=== PATIENT | male | born 2000 | race Caucasian/White ===

== ENCOUNTER 2025-02-17 11:43 | Outpatient (REF) | payer MEDICAID, OTHER, SELFPAY ==
[2025-02-17 13:30] LABS: Estimated Average Glucose 103 mg/dL; Hemoglobin A1C 133.9376 umol/L; Hemoglobin A1c % 5.2 % (<6.0); Total Hemoglobin (HGBA1C) 4030.6055 umol/L
[2025-02-17 13:37] LABS: Hemoglobin 15.3 g/dl (14.0-18.0); Mean Corpuscular HGB Conc 33.3 g/dl (31.0-36.0); Mean Corpuscular Hemoglobin 30.5 pg (27.0-33.0); Mean Corpuscular Volume 91.6 fL (80.0-98.0); Mean Platelet Volume 11.1 fL (9.4-12.4); Platelet Count 308 X10*3/uL (160-400); Red Blood Count 5.02 X10*6/uL (4.60-5.80); Red Cell Distribution Width 12.5 % (11.0-16.0); White Blood Count 8.5 X10*3/uL (4.8-10.8)
[2025-02-17 13:38] LABS: Alanine Aminotransferase 21 U/L (0-40); Albumin Level 4.2 g/dL (3.5-5.0); Anion Gap 11 (12-20); Aspartate Amino Transferase 33 U/L (5-37); Bilirubin Direct 0.3 mg/dL (0.0-0.5); Bilirubin Total 0.9 mg/dL (0.0-1.0); Blood Urea Nitrogen 19 mg/dL (9-16); Carbon Dioxide 26 mmol/L (22-29); Chloride 106 mmol/L (96-108); Cholesterol 154 mg/dL (<200); Estimated Glomerular Filt Rate > 60; Glucose Random 87 mg/dL (60-115); HDL Cholesterol 46 mg/dL (>40); LDL Cholesterol Calculated 95 mg/dL (<100); Sodium 139 mmol/L (135-145); Total Protein 7.5 g/dL (6.5-8.0); Triglycerides 67 mg/dL (<150)
[2025-02-17 14:06] LABS: Free T4 (Free Thyroxine) 1.07 ng/dL (0.71-1.85); Thyroid Stimulating Hormone 2.39 uIU/mL (0.32-4.0); Vitamin D 25-OH Total 58.1 ng/mL (>30)
[2025-02-17 14:09] LABS: Alkaline Phosphatase 96 U/L (39-117)
--- OUTSIDE RECORDS SUMMARY | 2025-02-17 14:38 | XMS_ITS | Clinical Summary ---
Author Organization [employer] Address [address] [place] [address] Care Team Providers Care Funds Transfer Clerk Name Role Phone Unavailable Primary Care Provider Unavailabl e Allergies No known active allergies Medications omeprazole OTC (PriLOSEC OTC) 20 MG EC tablet Take 1 tablet (20 mg) by mouth before breakfast. Do not crush, chew, or split. 30 tablet 3 5 02/18/20 26 Active aspirin-acetamin ophen-caffeine (Excedrin Migraine) 250-250-65 MG tablet Take 1 tablet by mouth every 6 (six) hours if needed for headaches for up to 10 days. 30 tablet 5 02/28/20 25 Active traMADol (Ultram) 50 MG tabletIndication s:Acute intractable headache, unspecified headache type Take 1 tablet (50 mg) by mouth every 6 (six) hours if needed for severe pain for up to 1 day. 4 tablet 5 02/19/20 25 Active Encounters Date Type Department Care Team Description 02/17/2025 11:00 AM EDT Office Visit [facility] [address] [id number] Acute intractable headache, unspecified headache type (Primary Dx); Epigastric discomfort 02/17/2025 Travel from Last 3 Months Social History Tobacco Use Types Packs/Day Years Used Date Smoking Tobacco: Never Assessed Sex and Gender Information Value Date Recorded Sex Assigned at Male 01/14/2024 11:35 AM EDT Legal Sex Male 2:20 PM EDT Gender Identity Male 01/14/2024 11:35 AM EDT Sexual Orientation Straight 02/17/2025 10 :49 AM EDT Last Filed Vital Signs Vital Sign Reading Time Taken Comments Blood Pressure 137/76 02/17/2025 11:02 AM EDT Pulse 62 02/17/2025 11:02 AM EDT Temperature 36.6 ??C (97.8 ??F) 02/17/2025 1 1:02 AM EDT Respiratory Rate 18 02/17/2025 11:0 2 AM EDT Oxygen Saturation 98% 02/17/2025 11: 02 AM EDT Inhaled Oxygen Concentration - - Weight 75.7 kg (166 lb 12.8 oz) 025 11:02 AM EDT Height - - Body Mass Index - - Plan of Treatment Health Maintenance Due Date Last Done Comments Depression Screening 2000 HIV Screening 2000 SDOH Screening 2000 Alcohol/Substance Use Screening 2012 Tobacco Screening 2012 Family Planning (PISQ) 2015 HPV Vaccines (1 - Male 3-dos e series) 2015 Hepatitis C Screening 2018 DTaP/Tdap/Td Vaccines (1 - Tdap) 2019 Hepatitis B Vaccines (1 of 3 - 19+ 3-dose series) 2019 COVID-19 Vaccine (1 - 2023-2 5 season) 2024 Influenza Vaccine (#1) 2024 Zoster Vaccines (1 of 2) 2050 RSV Patients and Pa tients Aged 60 years or older (1 - 1-dose 75+ series) 2075 HIB Vaccines Aged Out No longer eligi ble based on patient's age to complete this topic Hepatitis A Vaccines Aged Out No long er eligible based on patient's age to complete this topic IPV Vaccines Aged Out No longer eligi ble based on patient's age to complete this topic Meningococcal Vaccine Aged Out No blanca franko eligible based on patient's age to complete this topic Pneumococcal Vaccine: Pediat rics (0 to 5 Years) and At-Risk Patients (6 to 49) Years) Aged Out No longer eligible b ased on patient's age to complete this topic RSV under 20 months Aged Out No longe r eligible based on patient's age to complete this topic Rotavirus Vaccines Aged Out No longer eligible based on patient's age to complete this topic Procedures Procedure Name Priority Date/Time Associated Diagnosis Comments BASIC METABOLIC PANEL Routine 02/17/2025 11:50 AM EDT Acute intractable headache, unspecified headache type Epigastric discomfort CBC Routine 02/17/2025 11:50 AM EDT Acute intractable headache, unspecified headache type Epigastric discomfort HEMOGLOBIN A1C Routine 02/17/2025 11:50 AM EDT Acute intractable headache, unspecified headache type Epigastric discomfort HEPATIC FUNCTION PANEL Routine 02/17/2025 11:50 AM EDT Acute intractable headache, unspecified headache type Epigastric discomfort VITAMIN D,25-OH,TOTAL,IA Routine 02/17/2025 11:50 AM EDT Acute intractable headache, unspecified headache type Epigastric discomfort TSH Routine 02/17/2025 11:50 AM EDT Acute intractable headache, unspecified headache type Epigastric discomfort LIPID PANEL, STANDARD Routine 02/17/2025 11:50 AM EDT Acute intractable headache, unspecified headache type Epigastric discomfort T4, FREE Routine 02/17/2025 11:50 AM EDT Acute intractable headache, unspecified headache type Epigastric discomfort from Last 3 Months Results * Vitamin D, 25-Hydroxy, Total, Immunoassay (02/17/2025 11:50 AM EDT) [facility] Vitamin D 25-OH Total 58.1 >30 ng/mL [facility] Comment: Health Based Reference Values*< 20 ??ng/mL ??Vpzospbpx23-84 ng/mL ??Insufficient> 30 ??ng/mL ??Sufficient*Antolin JACKSON. N Engl J Med. 2007;357:266-280There is no well-established upper level of normal vitamin Dlevels. Some laboratories use 50 ng/mL as an upper limit ofnormal. However, toxicity is patient-dependent and may occurat any level. Careful correlation with the patient'spresentation is necessary and, if there is concern forvitamin D toxicity, treatment should be consideredirrespective of the serum level.Care must be taken in interpreting Vitamin D results fromdifferent laboratories and methodologies. ??Published datademonstrated that results from patients undergoinghemodialysis may show a negative bias when tested withvarious automated 25-OH vitamin D assays when compared toLC- MS/MS.When testing samples from patients whose predominant form ofVitamin D is Vitamin D2, such as patients receiving VitaminD2 supplementation, results that are subtherapeutic shouldbe confirmed with another method such as LC-MS/MS. Blood Venous blood specimen / Unknown 02/17/2025 11:50 AM EDT 02/17/2025 1:13 PM EDT us Maria M Cunningham DO LAB BLOOD ORDERABLES Final R esult [facility] [address] [place] [phone] * CBC (02/17/2025 11:50 AM EDT) White Blood Count 8.5 4.8 - 10.8 X10*3/uL [facility] Red Blood Count 5.02 4.60 - 5.80 X10*6/uL [facility] Hemoglobin 15.3 14.0 - 18.0 g/dl [facility] Hematocrit 46.0 42.0 - 52.0 % [facility] Mean Corpuscular Volume 91.6 80.0 - 98.0 fL [facility] Mean Corpuscular Hemoglobin 30.5 27.0 - 33.0 pg [facility] Mean Corpuscular HGB Conc 33.3 31.0 - 36.0 g/dl [facility] Red Cell Distribution Width 12.5 11.0 - 16.0 % [facility] Platelet Count 308 160 - 400 X10*3/uL [facility] Mean Platelet Volume 11.1 9.4 - 12.4 fL [facility] NRBC Pct Auto 0.0 0.0 - 0.2 /100WBC [facility] NRBC Abs Auto 0.000 0.0 - 0.012 X10*3/uL [facility] Blood Venous blood specimen / Unknown 02/17/2025 11:50 AM EDT 02/17/2025 1:13 PM EDT Maria M Delcidtiarachristine LAB BLOOD ORDERABLES Final R esult Performing Organization Address City/[facility]/ZIP Co de Phone Number [facility] [address] [place] [phone] * TSH (02/17/2025 11:50 AM EDT) Thyroid Stimulating Hormone 2.39 0.32 - 4.0 uIU/mL [facility] Comment:TSH 3rd Generation ( [facility]) Blood Venous blood specimen / Unknown 02/17/2025 11:50 AM EDT 02/17/2025 1:13 PM EDT Maria M Marisa LAB BLOOD ORDERABLES Final R esult Performing Organization Address [facility] Co de Phone Number [facility] [address] [place] [phone] * T4, Free (02/17/2025 11:50 AM EDT) Free T4 (Free Thyroxine) 1.07 0.71 - 1.85 ng/dL [facility] Blood Venous blood specimen / Unknown 02/17/2025 11:50 AM EDT 02/17/2025 1:13 PM EDT Maria M Delcidtiarachristine LAB BLOOD ORDERABLES Final R esult Performing Organization Address [facility]/ZIP Co de Phone Number [facility] [address] [place] [phone] * Hemoglobin A1c (02/17/2025 11:50 AM EDT) Hemoglobin A1c 5.2 <6.0 % [facility] Comment:Hemoglobin A1C Refer ence Range Adults: 4.8 - 6.0 % Non diabetic: < 6.0 % Goal: < 7.0 %Additional Action Suggested: > 8.0 %Note: Hemoglobin A1c results are invalid for patients with abnormal amounts of HbF. Blood transfusions may impact the HbA1c concentration in the patient sample. Estimated Average Glucose 103 mg/dL [facility] Comment:eAG = Estimated ave rage glucose which is %A1C expressed asaverage glucose, using the formula of the X0D-KjyyndhGfvoibd Glucose study (ADAG), Diabetes Care, Vol.31,#8,Jun. 2007 Blood Venous blood specimen / Unknown 02/17/2025 11:50 AM EDT 02/17/2025 1:13 PM EDT us Maria M Cunningham DO LAB BLOOD ORDERABLES Final R esult Performing Organization Address City/[facility]/ZIP Co de Phone Number [facility] [address] [place] [phone] * Hepatic Function Panel (02/17/2025 11:50 AM EDT) Bilirubin, Total 0.9 0.0 - 1.0 mg/dL [facility] Bilirubin, Direct 0.3 0.0 - 0.5 mg/dL [facility] Aspartate Amino Transferase 33 5 - 37 U/L [facility] Comment:Slight Hemolysis.Int erpret result with caution. Alanine Aminotransferase 21 0 - 40 U/L [facility] Total Protein 7.5 6.5 - 8.0 g/dL [facility] Albumin Level 4.2 3.5 - 5.0 g/dL [facility] Alkaline Phosphatase 96 39 - 117 U/L [facility] Blood Venous blood specimen / Unknown 02/17/2025 11:50 AM EDT 02/17/2025 1:13 PM EDT us Maria M Cunningham DO LAB BLOOD ORDERABLES Final R esult [facility] [address] [place] [phone] * Lipid Panel, Standard (02/17/2025 11:50 AM EDT) Triglycerides 67 <150 mg/dL [facility] Comment:Desirable Triglyceri de: less than 150 mg/dLBorderline High Triglyceride 150-199 mg/dLHigh Triglyceride: 200-499 mg/dLVery High Triglyceride: greater than or equal to 5OO mg/dL Cholesterol 154 <200 mg/dL [facility] Comment:Desirable Cholestero l: less than 200 mg/dLBorderline High Cholesterol: 200-239 mg/dLHigh Cholesterol: greater than 239 mg/dL LDL Cholesterol Calculated 95 <100 mg/dL [facility] Comment:Desirable LDL: less than 100 mg/dLNear Optimal/Above Optimal LDL: 110- 129 mg/dLBorderline High LDL: 130-159 mg/dLHigh LDL: 160-189 mg/dLVery High LDL: greater than or equal to 190 mg/dL HDL Cholesterol 46 >40 mg/dL [facility] Comment:Desirable HDL: great er than 40 mg/dL Note: This HDL assay may give artificially low results in patients with liver disease. Blood Venous blood specimen / Unknown 02/17/2025 11:50 AM EDT 02/17/2025 1:13 PM EDT us Maria M Cunningham DO LAB BLOOD ORDERABLES Final R esult [facility] [address] [place] [phone] * (ABNORMAL) Basic Metabolic Panel (02/17/2025 11:50 AM EDT) Sodium 139 135 - 145 mmol/L [facility] Potassium 4.0 3.3 - 5.1 mmol/L [facility] Comment:Slight Hemolysis.Int erpret result with caution. Chloride 106 96 - 108 mmol/L [facility] Carbon Dioxide 26 22 - 29 mmol/L [facility] Anion Gap 11(L) 12 - 20 [facility] Urea Nitrogen (BUN) 19(H) 9 - 16 mg/dL [facility] Creatinine, Serum 0.76 0.5 - 1.4 mg/dL [facility] Estimated Glomerular Filt Rate >60 [facility] Comment:Chronic Kidney Disea se: Estimated GFR < 60 mL/min/[id number] Kidney Disease: Estimated GFR < 15 mL/min/1.73m2 Glucose 87 60 - 115 mg/dL [facility] Calcium 9.0 8.4 - 10.2 mg/dL [facility] Blood Venous blood specimen / Unknown 02/17/2025 11:50 AM EDT 02/17/2025 1:13 PM EDT us Maria M Cunningham DO LAB BLOOD ORDERABLES Final R esult [facility] [address] [place] [phone] from Last 3 Months Insurance [facility] N FULL
--- OUTSIDE RECORDS SUMMARY | 2025-02-17 14:38 | XMS_ITS | Encounter Summary ---
Author Organization [employer] Address [address] [place] [address] Care Team Providers Care Advisor Advocate Angel Co Founder Name Role Phone Unavailable Primary Care Provider Unavailabl e Encounter Details Date Type Department Care Team (Latest Contact Info) Description 02/17/2025 Travel Social History Tobacco Use Types Packs/Day Years Used Date Smoking Tobacco: Never Assessed Sex and Gender Information Value Date Recorded Sex Assigned at Male 01/14/2024 11:35 AM EDT Legal Sex Male 2:20 PM EDT Gender Identity Male 01/14/2024 11:35 AM EDT Sexual Orientation Straight 02/17/2025 10 :49 AM EDT documented as of this encounter Plan of Treatment Not on file documented as of this encounter Visit Diagnoses Not on filedocumented in this encounter
--- OUTSIDE RECORDS SUMMARY | 2025-02-17 14:38 | XMS_ITS | Encounter Summary ---
Author Organization [employer] Address [address] [place] [address] Care Team Providers Care Net C Developer Name Role Phone Unavailable Primary Care Provider Unavailabl e Reason for Visit * Reason Comments Headache Encounter Details Date Type Department Care Team ([facility] st Contact Info) Description 02/17/2025 11:00 AM EDT Office Visit [facility] [address] [place] [address] Acute intractable headache, unspecified headache type (Primary Dx); Epigastric discomfort Social History Tobacco Use Types Packs/Day Years Used Date Smoking Tobacco: Never Assessed Sex and Gender Information Value Date Recorded Sex Assigned at Male 01/14/2024 11:35 AM EDT Legal Sex Male 2:20 PM EDT Gender Identity Male 01/14/2024 11:35 AM EDT Sexual Orientation Straight 02/17/2025 10 :49 AM EDT documented as of this encounter Last Filed Vital Signs Vital Sign Reading [...] - - Body Mass Index - - documented in this encounter Plan of Treatment Scheduled Orders Name Type Priority Associated Diagnoses Orde r Schedule Hepatitis B surface antigen, EIA Lab Routine Acute intractable headache, unspecified headache type Epigastric discomfort Expected: 02/17/2025 (Approximate), Expires: 02/17/2026 Chlamydia/N. Gonorrhoeae RNA, TMA, Urogenitial Microbiology Routine Acute intractable headache, unspecified headache type Epigastric discomfort Ordered: 02/17/2025 HIV-1/2 Antigen and Antibodies, Fourth Generation, with Reflexes Lab Routine Acute intractable headache, unspecified headache type Epigastric discomfort Expected: 02/17/2025 (Approximate), Expires: 02/17/2026 Hepatitis C Antibody with Reflex to HCV, RNA, Quantitative, Real-Time PCR Lab Routine Acute intractable headache, unspecified headache type Epigastric discomfort Expected: 02/17/2025, Expires: 02/17/2026 RPR (Monitor) with Reflex to??Titer Lab Routine Acute intractable headache, unspecified headache type Epigastric discomfort Expected: 02/17/2025, Expires: 02/17/2026 Hepatitis B Surface Antibody, Qualitative Lab Routine Acute intractable headache, unspecified headache type Epigastric discomfort Expected: 02/17/2025 (Approximate), Expires: 02/17/2026 Hepatitis A Antibody, Total Lab Routine Acute intractable headache, unspecified headache type Epigastric discomfort Expected: 02/17/2025 (Approximate), Expires: 02/17/2026 Hepatitis B Core Antibody, Total Lab Routine Acute intractable headache, unspecified headache type Epigastric discomfort Expected: 02/17/2025 (Approximate), Expires: 02/17/2026 T-SPOT??.TB Lab Routine Acute intractable headache, unspecified headache type Epigastric discomfort Expected: 02/17/2025 (Approximate), Expires: 02/17/2026 Varicella zoster antibody, IgG Lab Routine Acute intractable headache, unspecified headache type Epigastric discomfort Expected: 02/17/2025 (Approximate), Expires: 02/17/2026 Measles, Mumps, and Rubella (MMR) Antibodies??(IgG) Panel, Immune Status Lab Routine Acute intractable headache, unspecified headache type Epigastric discomfort Expected: 02/17/2025 (Approximate), Expires: 02/17/2026 documented as of this encounter Procedures Procedure Name Priority Date/Time Associated Diagnosis Comments VITAMIN D,25-OH,TOTAL,IA Routine 02/17/2025 11:50 AM EDT [...] intractable headache, unspecified headache type Epigastric discomfort BASIC METABOLIC PANEL Routine 02/17/2025 11:50 AM EDT Acute intractable headache, unspecified headache type Epigastric discomfort documented in this encounter Results * (ABNORMAL) Basic Metabolic Panel (02/17/2025 11:50 AM EDT) Sodium 139 135 - 145 mmol/L [facility] Potassium 4.0 3.3 - 5.1 mmol/L [facility] Comment:Slight Hemolysis.Int erpret result with caution. Chloride 106 96 - 108 mmol/L [facility] Carbon Dioxide 26 22 - 29 mmol/L [facility] Anion Gap 11(L) 12 - 20 [facility] Urea Nitrogen (BUN) 19(H) 9 - 16 mg/dL [facility] Creatinine, Serum 0.76 0.5 - 1.4 mg/dL [facility] Estimated Glomerular Filt Rate >60 [facility] Comment:Chronic Kidney Disea se: Estimated GFR < 60 mL/min/[id number] Kidney Disease: Estimated GFR < 15 mL/min/1.73m2 Glucose 87 60 - 115 mg/dL [facility] Calcium 9.0 8.4 - 10.2 mg/dL [facility] Blood Venous blood specimen / Unknown 02/17/2025 11:50 AM EDT 02/17/2025 1:13 PM EDT Maria M Cunningham DO LAB BLOOD ORDERABLES Final R esult Performing Organization Address City/[facility]/ZIP Co de Phone Number [facility] [address] [place] [phone] * CBC (02/17/2025 11:50 AM EDT) White Blood Count 8.5 4.8 - 10.8 X10*3/uL [facility] Red Blood Count 5.02 4.60 - 5.80 X10*6/uL [facility] Hemoglobin 15.3 14.0 - 18.0 g/dl [facility] Hematocrit 46.0 42.0 - 52.0 % [facility] Mean Corpuscular Volume 91.6 80.0 - 98.0 fL [facility] Mean Corpuscular Hemoglobin 30.5 27.0 - 33.0 pg [facility] Mean Corpuscular HGB Conc 33.3 31.0 - 36.0 g/dl [facility] Red Cell Distribution Width 12.5 11.0 - 16.0 % [facility] Platelet Count 308 160 - 400 X10*3/uL [facility] Mean Platelet Volume 11.1 9.4 - 12.4 [facility] NRBC Pct Auto 0.0 0.0 - 0.2 /100WBC [facility] NRBC Abs Auto 0.000 0.0 - 0.012 X10*3/uL [facility] Blood Venous blood specimen / Unknown 02/17/2025 11:50 AM EDT 02/17/2025 1:13 PM EDT Maria M Cunningham DO LAB BLOOD ORDERABLES Final R esult [facility] [address] [place] [phone] * Hemoglobin A1c (02/17/2025 11:50 AM EDT) Hemoglobin A1c 5.2 <6.0 % [facility] Comment:Hemoglobin A1C Refer ence Range Adults: 4.8 - 6.0 % Non diabetic: < 6.0 % Goal: < 7.0 %Additional Action Suggested: > 8.0 %Note: Hemoglobin A1c results are invalid for patients with abnormal amounts of HbF. Blood transfusions may impact the HbA1c concentration in the patient sample. Estimated Average Glucose 103 mg/dL [facility] Comment:eAG = Estimated ave rage glucose which is %A1C expressed asaverage glucose, using the formula of the F8O-RlalwikShbxctt Glucose study (ADAG), Diabetes Care, Vol.31,#8,Jun. 2007 Blood Venous blood specimen / Unknown 02/17/2025 11:50 AM EDT 02/17/2025 1:13 PM EDT Maria M Cunningham DO LAB BLOOD ORDERABLES Final R esult Performing Organization Address [facility] Co de Phone Number [facility] [address] [place] [phone] * Hepatic Function Panel (02/17/2025 11:50 AM EDT) Bilirubin, Total 0.9 0.0 - 1.0 mg/dL [facility] Bilirubin, Direct 0.3 0.0 - 0.5 mg/dL [facility] Aspartate Amino Transferase 33 5 - 37 U/L [facility] Comment:Slight Hemolysis.Int erpret result with caution. Alanine Aminotransferase 21 0 - 40 U/L [facility] Total Protein 7.5 6.5 - 8.0 g/dL [facility] Albumin Level 4.2 3.5 - 5.0 g/dL [facility] Alkaline Phosphatase 96 39 - 117 U/L [facility] Blood Venous blood specimen / Unknown 02/17/2025 11:50 AM EDT 02/17/2025 1:13 PM EDT us Maria M Cunningham DO LAB BLOOD ORDERABLES Final R esult Performing Organization Address City/[facility]/ZIP Co de Phone Number [facility] [address] [place] [phone] * Vitamin D, 25-Hydroxy, Total, Immunoassay (02/17/2025 11:50 AM EDT) Vitamin D 25-OH Total 58.1 >30 ng/mL [facility] Comment: Health Based Reference Values*< 20 ??ng/mL ??Xikvctoyo08-36 ng/mL ??Insufficient> 30 ??ng/mL ??Sufficient*Antolin JACKSON. N [...] EDT 02/17/2025 1:13 PM EDT Maria M Cunningham DO LAB BLOOD ORDERABLES Final R esult Performing Organization Address City/[facility]/ZIP Co de Phone Number [facility] [address] [place] [phone] * TSH (02/17/2025 11:50 AM EDT) Thyroid Stimulating Hormone 2.39 0.32 - 4.0 uIU/mL [facility] Comment:TSH 3rd Generation ( [facility]) Blood Venous blood specimen / Unknown 02/17/2025 11:50 AM EDT 02/17/2025 1:13 PM EDT Maria M Cunningham DO LAB BLOOD ORDERABLES Final R esult [facility] [address] [place] [phone] * Lipid Panel, Standard (02/17/2025 11:50 AM EDT) Triglycerides 67 <150 mg/dL [facility] Comment:Desirable Triglyceri de: less than 150 mg/dLBorderline High Triglyceride 150-199 mg/dLHigh Triglyceride: 200-499 mg/dLVery High Triglyceride: greater than or equal to 5OO mg/dL Cholesterol 154 <200 mg/dL [facility] Comment:Desirable Cholestero l: less than 200 mg/dLBorderline High Cholesterol: 200-239 mg/dLHigh Cholesterol: greater than 239 mg/dL LDL Cholesterol Calculated 95 <100 mg/dL [facility] Comment:Desirable LDL: less than 100 mg/dLNear Optimal/Above Optimal LDL: 110- 129 mg/dLBorderline High LDL: 130-159 mg/dLHigh LDL: 160-189 mg/dLVery High LDL: greater than or equal to 190 mg/dL HDL Cholesterol 46 >40 mg/dL [facility] Comment:Desirable HDL: great er than 40 mg/dL Note: This HDL assay may give artificially low results in patients with liver disease. Blood Venous blood specimen / Unknown 02/17/2025 11:50 AM EDT 02/17/2025 1:13 PM EDT Maria M Cunningham DO LAB BLOOD ORDERABLES Final R esult Performing Organization Address City/[facility]/ZIP Co de Phone Number [facility] [address] [place] [phone] * T4, Free (02/17/2025 11:50 AM EDT) Free T4 (Free Thyroxine) 1.07 0.71 - 1.85 ng/dL [facility] Blood Venous blood specimen / Unknown 02/17/2025 11:50 AM EDT 02/17/2025 1:13 PM EDT us Maria M Cunningham DO LAB BLOOD ORDERABLES Final R esult Performing Organization Address [facility]/ZIP Co de Phone Number [facility] [address] [place] [phone] documented in this encounter Visit Diagnoses Diagnosis Acute intractable headache, unspecified headache type- Primary Epigastric discomfort documented in this encounter
[2025-02-17 16:28] LABS: CT PCR NOT DETECTED (Not Detect.); NG PCR NOT DETECTED (Not Detect.)
[2025-02-18 06:28] LABS: Rubella IgG Antibody 5.32 Index; Rubeola IgG (Measles) <13.50 AU/mL
[2025-02-18 08:14] LABS: HBS Num1 25.79 mIU/mL (0-7.99); HBc Num1 0.24 S/CO (0.00-0.79); HIV AB/AG Nonreactive (Nonreactive); HIV Num 1 0.05 S/CO (0.00-0.99); Hepatitis B Core Antibody Nonreactive (Nonreactive); Hepatitis B Surface Antigen Negative (Negative); ~HepC Num1 0.17 S/CO (0.00-0.79); ~Hepatitis B Surface Antibody REACTIVE (Nonreactive); ~Hepatitis C Antibody Nonreactive (Nonreactive)
[2025-02-18 09:34] LABS: Varicella IgG Antibody 2.61 S/CO
[2025-02-19 22:34] LABS: TS Negative Control Passed; TS Panel A 25; TS Panel B 61; TS Positive Control Passed; TSpotTB Positive (Negative)
[2025-02-22 08:55] LABS: Hepatitis A Antibody IgG REACTIVE (Nonreactive); ~Hepatitis A Antibody IgG 10.51 S/CO (0.00-0.99)
[2025-02-22 14:24] LABS: RPR Rapid Plasma Reagin NON-REACTIVE (NON-REACTIVE)
== END 2025-02-17 11:44 | disposition home or self-care (01) ==
LOC: HO.HHCL 11:43
PROVIDERS: Visit Provider Family Medicine
DX: R51.9 Headache, unspecified (principal); R10.13 Epigastric pain
CPT/HCPCS: 80048; 80061; 80076; 82306; 83036; 84439; 84443; 85027; 86481; 86592; 86704; 86706; 86708; 86735; 86762; 86765; 86787; 86803; 87340; 87389; 87491; 87591

== ENCOUNTER 2025-02-23 08:44 | Outpatient (REF) | payer MEDICAID, OTHER, SELFPAY ==
--- NOTE | ~2025-02-23 | XR_ITS ---
EXAMINATION: XR CHEST CLINICAL INFORMATION: Positive Tspot COMPARISON: None available. TECHNIQUE: 2 views of the chest were obtained. FINDINGS: The cardiac, hilar, and mediastinal contours are normal. The lungs are clear bilaterally. There is no pneumothorax or pleural effusion. There is no focal osseous or soft tissue abnormality. XR/XR chest 2V IMPRESSION: Normal chest. Electronically signed by: Jabier Hinds MD 02/23/2025 09:07 AM EDT
--- OUTSIDE RECORDS SUMMARY | 2025-02-23 09:12 | XMS_ITS | Encounter Summary ---
Author Organization [employer] Address [address] [facility] [address] [place] [address] Care Team Providers Care Sole Skiver Name Role Phone Maria M Cunningham DO Primary Care Provider [phone] Reason for Visit * Reason Onset Date Comments Results 02/22/2025 Encounter Details Date Type Department Care Team ([facility] st Contact Info) Description 02/22/2025 Telephone [facility] [address] [place], [place] [phone] Maria M Cunningham DO [address] [place], [place] [phone] Results Social History Tobacco Use Types Packs/Day Years Used Date Smoking Tobacco: Never Assessed Sex and Gender Information Value Date Recorded Sex Assigned at Male 01/14/2024 11:35 AM EDT Legal Sex Male 2:20 PM EDT Gender Identity Male 01/14/2024 11:35 AM EDT Sexual Orientation Straight 02/17/2025 10 :49 AM EDT documented as of this encounter Miscellaneous Notes * Addendum Note - Jose Juan Camargo RN - 02/22/2025 2:57 PM EDTAddended by: JOSE JUAN CAMARGO on: 02/22/2025 02:57 PM Modules accepted: Orders * Telephone Encounter - Jose Juan Camargo RN - 02/22/2025 2:51 PM EDT Noted. RN discussed positive Tspot result with PCP. PCP will order CXR to r/o active infection vs. Latent TB and PCP will refer patient to TB clinic once CXR results are obtained. TC placed to patient [phone] to inform of above message and POC. Patient reports he has no known exposure to TB and has not tested positive in the past. Patient reports he will complete CXR tomorrow. RN will f/u with results. Patient to f/u PRN. 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 documented in this encounter Plan of Treatment Not on file documented as of this encounter Procedures Procedure Name Priority Date/Time Associated Diagnosis Comments XR CHEST 2 VIEWS Routine 02/23/2025 8:44 AM EDT Positive TB test documented in this encounter Results * XR Chest 2 Views (02/23/2025 8:44 AM EDT) Anatomical Region Laterality Modality Chest Radiographic Emily ging 02/23/2025 8:44 AM EDT Narrative 02/23/2025 9:10 AM EDT ?[facility] ?[address] ?[place] [address] ?XRay Report ? Signed ? Patient: Agualsaca Pilgabriella,Tobi E ?MR ?? #: [id number] ? : 2000 ?Acct:[id number] ? Age/Sex: 24 / M ?ADM Date: 02/23/ ? Loc: HO.HHCX ? Attending Veronica Cunningham DO ? Ordering Physician: Maria M Cunningham DO ?? Date of Service: 02/23/25 ?? Procedure(s): XR chest 2V ?? Accession Number(s): [id number] ? cc: Maria M Cunningham DO ? EXAMINATION: ?? XR CHEST ? CLINICAL INFORMATION: ?? Positive Tspot ? COMPARISON: ?? None available. ? TECHNIQUE: ?? 2 views of the chest were obtained. ? FINDINGS: ?? The cardiac, hilar, and mediastinal contours are normal. ? The lungs are clear bilaterally. There is no pneumothorax or pleural ?? effusion. ? There is no focal osseous or soft tissue abnormality. ? XR/XR chest 2V ?? IMPRESSION: ?? Normal chest. ? Electronically signed by: ??Jabier Hinds MD ??02/23/2025 09:07 AM EDT RP ? Dictated By: ?Jabier Hinds MD ? Signed By: ?<Electronically signed by Jaiber Hinds MD in OV> ?02/23/25 0907 ? DD/ 0844 ? TD/TT: 02/23/25 0904 ? Sulfonation Equipment Operator: ? Procedure Note Peggy, Natanael - 02/23/[address] [address] XRay Report Signed Patient: Tobi Lim EMR #: [id number] : 2000Acct:[id number] Age/Sex: 24 MADM Date: 02/23/25 Loc: HO.HHCX Attending Dr: Maria M Cunningham DO Ordering Physician: Maria M Cunningham DO Date of Service: 02/23/25 Procedure(s): XR chest 2V Accession Number(s): [id number] cc: Maria M Cunningham DO EXAMINATION: XR CHEST CLINICAL INFORMATION: Positive Tspot COMPARISON: None available. TECHNIQUE: 2 views of the chest were obtained. FINDINGS: The cardiac, hilar, and mediastinal contours are normal. The lungs are clear bilaterally. There is no pneumothorax or pleural effusion. There is no focal osseous or soft tissue abnormality. XR/XR chest 2V IMPRESSION: Normal chest. Electronically signed by: Jabier Hinds MD 02/23/2025 09:07 AM EDT Dictated By: Jabier Hinds MD Signed By: <Electronically signed by Jabier Hinds MD in OV> 02/23/25 09 DD/ 3 TD/TT: 02/23/25903 Sulfonation Equipment Operator: us Maria M Cunningham DO IMG XR PROCEDURES Final Resu lt documented in this encounter Visit Diagnoses Diagnosis Positive TB test documented in this encounter Care Teams Sole Skiver Relationship Specialty Start Date End Date Maria M Cunningham DO [address] [place] [phone] PCP - General Family Medicine 02/17/25 documented as of this encounter
--- OUTSIDE RECORDS SUMMARY | 2025-02-23 09:12 | XMS_ITS | Clinical Summary ---
Author Organization [employer] Address [address] [facility] [address] [place] [address] Care Team Providers Care Uniform Patrol Police Officer Name Role Phone Maria M Cunningham DO Primary Care Provider [phone] Allergies No known active allergies Medications omeprazole [...] day. 4 tablet 5 02/19/20 25 Active Problems No known active problems Encounters Date Type Department Care Team Description 02/22/2025 Telephone [facility] MEDICINE [address] [place] [phone] Maria M Cunningham DO Results 02/18/2025 Telephone [facility] MEDICINE [address] [place] [phone] Maria M Cunningham DO Results 02/17/2025 11:00 AM EDT Office Visit [facility] [address] [place] [address] Maria M Cunningham DO Acute intractable headache, unspecified headache type (Primary [...] Date Last Done Comments Depression Screening 2000 SDOH Screening 2000 Alcohol/Substance Use Screening 2012 Tobacco Screening 2012 Family Planning (PISQ) 2015 HPV Vaccines (1 - Male 3-dos e series) 2015 DTaP/Tdap/Td Vaccines (1 - Tdap) 2019 Hepatitis B Vaccines (1 of 3 - 19+ 3-dose series) 2019 COVID-19 Vaccine ( - 2023-2 5 season) 2024 Influenza Vaccine (#1) 2024 Zoster Vaccines (1 of 2) 2050 RSV Patients and Pa tients Aged 60 years or older (1 - 1-dose 75+ series) 2075 HIV Screening Completed 02/17/2025 Hepatitis C Screening Completed 02/17/2025 HIB Vaccines Aged Out No longer eligi [...] to 49) Years) Aged Out No longer elig ible based on patient's age to complete this topic RSV under 20 months Aged Out No longe r eligible based on patient's age to complete this topic Rotavirus Vaccines Aged Out No longer eligible based on patient's age to complete this topic Procedures Procedure Name Priority Date/Time Associated Diagnosis Comments XR CHEST 2 VIEWS Routine 02/23/2025 8:44 AM EDT Positive TB test MEASLES, MUMPS, AND RUBELLA (MMR) AB (IGG) PANEL, IMMUNE STATUS Routine 02/17/2025 11:50 AM EDT Acute intractable headache, unspecified headache type Epigastric discomfort VARICELLA ZOSTER ANTIBODY, IGG Routine 02/17/2025 11:50 AM EDT Acute intractable headache, unspecified headache type Epigastric discomfort T-SPOT(R).TB Routine 02/17/2025 11:50 AM EDT Acute intractable headache, unspecified headache type Epigastric discomfort HEPATITIS B CORE AB TOTAL Routine 02/17/2025 11:50 AM EDT Acute intractable headache, unspecified headache type Epigastric discomfort HEPATITIS A ANTIBODY, TOTAL Routine 02/17/2025 11:50 AM EDT Acute intractable headache, unspecified headache type Epigastric discomfort HEPATITIS B SURFACE ANTIBODY, QUALITATIVE Routine 02/17/2025 11:50 AM EDT Acute intractable headache, unspecified headache type Epigastric discomfort RPR (MONITOR) W/REFL TITER Routine 02/17/2025 11:50 AM EDT Acute intractable headache, unspecified headache type Epigastric discomfort HEPATITIS C AB W/REFL TO HCV RNA, QN, PCR Routine 02/17/2025 11:50 AM EDT Acute intractable headache, unspecified headache type Epigastric discomfort HIV 1/2 ANTIGEN/ANTIBODY, FOURTH GENERATION W/RFL Routine 02/17/2025 11:50 AM EDT Acute intractable headache, unspecified headache type Epigastric discomfort HEPATITIS B SURFACE ANTIGEN, EIA Routine 02/17/2025 11:50 AM EDT Acute intractable [...] intractable headache, unspecified headache type Epigastric discomfort CHLAMYDIA/N. GONORRHOEAE RNA, TMA, UROGENITAL Routine 02/17/2025 11:50 AM EDT Acute intractable headache, unspecified headache type Epigastric discomfort from Last 3 Months Results * XR Chest 2 Views (02/23/2025 8:44 AM EDT) Anatomical Region Laterality Modality Chest Radiographic Emily ging 02/23/2025 8:44 AM EDT Narrative 02/23/2025 9:10 AM EDT ?[facility] ?[address] ?[place] [address] ?XRay Report ? Signed ? Patient: Agualsaca Pilco,Tobi E ?MR ?? #: [id number] ? : 2000 ?Acct:[id number] ? Age/Sex: 24 / M ?ADM Date: 02/23/25 ? Loc: HO.HHCX ? Attending Dr: Maria M Cunningham DO ? Ordering Physician: Maria M Cunningham DO ?? Date of Service: 02/23/25 ?? Procedure(s): XR chest 2V ?? Accession Number(s): [id number] ? cc: Maria M Cunningham DO ? [...] MD ? Signed By: ?<Electronically signed by Jabier Hinds MD in OV> ?02/23/25 0907 ? DD/ 0844 ? TD/TT: 02/23/25 0904 ? Environmental Science Professor: ? Procedure Note Peggy, Natanael - 02/23/2025 [facility] [address] [place] [address] XRay Report Signed Patient: Tobi Lim EMR #: [id number] : 2000Acct:[id number] Age/Sex: 24 / MADM Date: 02/23/25 Loc: HO.HHCX Attending Dr: Maria M Cunningham DO Ordering Physician: Maria M Cunningham DO Date of Service: 02/23/25 Procedure(s): XR chest 2V Accession Number(s): [id number] cc: Maria M Cunningham DO EXAMINATION: XR [...] by Jabier Hinds MD in OV> 02/23/25 0907 DD/ 0844 TD/TT: 02/23/25 0904 Environmental Science Professor: Maria M Cunningham DO IMG XR PROCEDURES Final Resu lt * Vitamin D, 25-Hydroxy, Total, Immunoassay (02/17/2025 11:50 AM EDT) Vitamin D 25-OH Total 58.1 >30 ng/mL [facility] Comment: Health Based Reference Values*< 20 ??ng/mL ??Gtivtdxjx40-56 ng/mL ??Insufficient> 30 ??ng/mL ??Sufficient*Antolin JACKSON. N [...] 02/17/2025 1:13 PM EDT Maria M Marisa DO LAB BLOOD ORDERABLES Final R esult [facility] [address] [place] [phone] * (ABNORMAL) T-SPOT??.TB (02/17/2025 11:50 AM EDT) T Spot TB Positive( A) Negative [facility] Comment: Diagnosing or excluding tuberculosis (TB) disease andassessing the probability of latent TB infection (LTBI)requires a combination of epidemiological, historical,medical and diagnostic findings that should be takeninto consideration when interpreting T-SPOT.TB testresults. A positive test result does not rule in activeTB disease caused by Mycobacterium tuberculosis(M. tuberculosis); active TB disease should beconfirmed by other tests such as sputum smear andculture, PCR, and chest radiography.Uncommonly, a positive T-SPOT.TB result may be due toinfection with other Mycobacterium species includingM. kansasii, M. szulgai, M. gordonae, or M. marinum.Alternative tests would be required if these infectionsare suspected.The T-SPOT.TB test is qualitative and results arereported as positive, borderline, or negative, giventhat the test controls perform as expected. In linewith the Centers for Disease Control and Prevention's2010 recommendation to report quantitative measurementsalongside the qualitative result, the laboratoryprovides spot counts for informational purposes only.The T-SPOT.TB test should not be interpreted as aquantitative test. TS PANEL A 25 [facility] TS PANEL B 61 [facility] Negative Control Passed [facility] Positive Control Passed [facility] Comment:For additional infor aaron, please refer tohttp://education.Bombfell/faq/EWP802(This link is being provided for informational/educational purposes only.)REPORT COMMENT:REC'D IN Q-CHYTHIS TEST WAS PERFORMED AT:[employer] COUNTY[facility]HJP[facility]YR[address] [place] [phone] STEEL MD,PHD 02/17/2025 11:5 0 AM EDT 02/17/2025 1:13 PM EDT us Maria M Cunningham DO LAB BLOOD ORDERABLES Final R esult Performing Organization Address [facility] Co de Phone Number [facility] [address] [place] [phone] * Hepatitis C Antibody with Reflex to HCV, RNA, Quantitative, Real-Time PCR (02/17/2025 11:50 AM EDT) Hepatitis C Antibody Nonreactive Nonreactive [facility] Comment:Antibodies to HCV no t detected; does not exclude early acuteHCV infection. Blood Venous blood specimen / Unknown 02/17/2025 11:50 AM EDT 02/17/2025 1:13 PM EDT Maria M Cunningham DO LAB BLOOD ORDERABLES Final R esult Performing Organization Address [facility] Co de Phone Number [facility] [address] [place] [phone] * Hepatitis A Antibody, Total (02/17/2025 11:50 AM EDT) Hepatitis A Antibody IgG REACTIVE Nonreactive [facility] Comment:The presence of IgG anti-HAV implies past HAV infection(recent or distant) or vaccination against HAV. Blood Venous blood specimen / Unknown 02/17/2025 11:50 AM EDT 02/17/2025 1:13 PM EDT Maria M Cunningham DO LAB BLOOD ORDERABLES Final R esult Performing Organization Address City/[facility] Co de Phone Number [facility] [address] [place] [address] [phone] * Chlamydia/N. Gonorrhoeae RNA, TMA, Urogenitial (02/17/2025 11:50 AM EDT) CT PCR NOT DETECTED Not Detect. [facility] Comment:A not detected test result does not exclude the possibilityof infection because test results can be affected byimproper specimen collection, concurrent antibiotic therapy,or the number of organisms in the specimen which may bebelow the sensitivity of the test. As with many diagnostictests, results from the Xpert CT/NG assay should beinterpreted in conjunction with other laboratory andclinical data available to the clinician.Xpert CT/NG performance has not been evaluated in patientsless than 14 years of age. The assay should not be used forthe evaluationof suspected sexual abuse or for other medico-legalindications. Additional testing is recommended in anycircumstance when false positive or false negative resultscould lead to adverse medical, social or psychologicalconsequences. NG PCR NOT DETECTED Not Detect. [facility] Comment:A not detected test result does not exclude the possibilityof infection because test results can be affected byimproper specimen collection, concurrent antibiotic therapy,or the number of organisms in the specimen which may bebelow the sensitivity of the test. As with many diagnostictests, results from the Xpert CT/NG assay should beinterpreted in conjunction with other laboratory andclinical data available to the clinician.Xpert CT/NG performance has not been evaluated in patientsless than 14 years of age. The assay should not be used forthe evaluationof suspected sexual abuse or for other medico-legalindications. Additional testing is recommended in anycircumstance when false positive or false negative resultscould lead to adverse medical, social or psychologicalconsequences. Urine Urethral structure / Unknown 02/17/2025 11:50 AM EDT 02/17/2025 1:13 PM EDT Narrative [facility] - 02/17/2025 4:29 PM EDT Urine us Maria M Cunningham DO LAB MICROBIOLOGY - GENERAL O RDERABLES Final Result Performing Organization Address City/[facility]/ZIP Co de Phone Number [facility] [address] [place] [phone] * Hepatitis B surface antigen, EIA (02/17/2025 11:50 AM EDT) Hepatitis B Surface Ag Negative Negative [facility] Blood Venous blood specimen / Unknown 02/17/2025 11:50 AM EDT 02/17/2025 1:13 PM EDT Maria M Marisa LAB BLOOD ORDERABLES Final R esult Performing Organization Address [facility] Co de Phone Number [facility] [address] [place] [phone] * Hepatitis B Core Antibody, Total (02/17/2025 11:50 AM EDT) Pathologist [facility] Hepatitis B Core Antibody Nonreactive Nonreactive [facility] Blood Venous blood specimen / Unknown 02/17/2025 11:50 AM EDT 02/17/2025 1:13 PM EDT Maria M Bhavintiarachristine LAB BLOOD ORDERABLES Final R esult Performing Organization Address [facility]/ZIP Co de Phone Number [facility] [address] [place] [phone] * HIV-1/2 Antigen and Antibodies, Fourth Generation, with Reflexes (02/17/2025 11:50 AM EDT) HIV AB/AG Nonreactive Nonreactive [facility] Comment:HIV-1 p24 Ag and/or HIV-1/HIV-2 Ab not detected.A test result that is nonreactive does not exclude thepossibility of exposure to or infection with HIV-1 and/orHIV-2. Nonreactive results in this assay for individualswith prior exposure to HIV-1 and/or HIV-2 may be due toantigen and antibody levels that are below the limit ofdetection of this assay.[facility] HIV Ag/Ab Combo assay result andsupplemental assay results should be interpreted inconjunction with the patient's clinical presentation,history and other laboratory results. If the results areinconsistent with clinical evidence, additional testing issuggested to confirm the result. Blood Venous blood specimen / Unknown 02/17/2025 11:50 AM EDT 02/17/2025 1:13 PM EDT Maria M Cunningham DO LAB BLOOD ORDERABLES Final R esult Performing Organization Address City/[facility]/ZIP Co de Phone Number [facility] [address] [place] [phone] * Hepatitis B Surface Antibody, Qualitative (02/17/2025 11:50 AM EDT) Pathologist [facility] ~Hepatitis B Surface Antibody REACTIVE Nonreactive [facility] Comment:REACTIVE: > 11.99 mI U/mL Blood Venous blood specimen / Unknown 02/17/2025 11:50 AM EDT 02/17/2025 1:13 PM EDT Maria M Cunningham DO LAB BLOOD ORDERABLES Final R esult Performing Organization Address City/[facility]/ZIP Co de Phone Number [facility] [address] [place] [phone] * CBC (02/17/2025 11:50 AM EDT) [facility] White Blood Count 8.5 4.8 - 10.8 X10*3/uL [facility] Red Blood Count 5.02 4.60 - 5.80 X10*6/uL [facility] Hemoglobin 15.3 14.0 - 18.0 g/dl [facility] Hematocrit 46.0 42.0 - 52.0 % [facility] Mean Corpuscular Volume 91.6 80.0 - 98.0 fL [facility] Mean Corpuscular Hemoglobin 30.5 27.0 - 33.0 pg [facility] Mean Corpuscular HGB Conc 33.3 31.0 - 36.0 g/dl [facility] Red Cell Distribution Width 12.5 11.0 - 16.0 % [facility] Platelet Count 308 160 - 400 X10*3/uL [facility] Mean Platelet Volume 11.1 9.4 - 12.4 fL [facility] NRBC Pct Auto 0.0 0.0 - 0.2 /100WBC [facility] NRBC Abs Auto 0.000 0.0 - 0.012 X10*3/uL [facility] Blood Venous blood specimen / Unknown 02/17/2025 11:50 AM EDT 02/17/2025 1:13 PM EDT Maria M Cunningham DO LAB BLOOD ORDERABLES Final R esult [facility] [address] [place] [phone] * Varicella zoster antibody, IgG (02/17/2025 11:50 AM EDT) Varicella IgG Antibody 2.61 S/CO [facility] Comment:Signal to Cut-off S/ CO Interpretation --------- <1.00 Negative - Antibody not detected > or = 1.00 Positive - Antibody detected A positive result indicates that the patient has antibody to VZV but does not differentiate between an active or past infection. The clinical diagnosis must be interpreted in conjunction with the clinical signs and symptoms of the patient. This assay reliably measures immunity due to previous infection but may not be sensitive enough to detect antibodies induced by vaccination. Thus, a negative result in a vaccinated individual does not necessarily indicate susceptibility to VZV infection. A more sensitive test for vaccination-induced immunity is Varicella Zoster Virus Antibody Immunity Screen, ACIF.THIS TEST WAS PERFORMED AT[employer] [place] [phone] SAAVEDRA MD Blood Venous blood specimen / Unknown 02/17/2025 11:50 AM EDT 02/17/2025 1:13 PM EDT Maria M Cunningham DO LAB BLOOD ORDERABLES Final R esult Performing Organization Address City/[facility]/ZIP Co de Phone Number [facility] [address] [place] [phone] * TSH (02/17/2025 11:50 AM EDT) Thyroid Stimulating Hormone 2.39 0.32 - 4.0 uIU/mL [facility] Comment:TSH 3rd Generation ( [facility]) Blood Venous blood specimen / Unknown 02/17/2025 11:50 AM EDT 02/17/2025 1:13 PM EDT Maria M Delcidtiarachristine LAB BLOOD ORDERABLES Final R esult Performing Organization Address [facility]/ZIP Co de Phone Number [facility] [address] [place] [phone] * T4, Free (02/17/2025 11:50 AM EDT) Free T4 (Free Thyroxine) 1.07 0.71 - 1.85 ng/dL [facility] Blood Venous blood specimen / Unknown 02/17/2025 11:50 AM EDT 02/17/2025 1:13 PM EDT Maria M Cunningham LAB BLOOD ORDERABLES Final R esult Performing Organization Address [facility] Co de Phone Number [facility] [address] [place] [phone] * Hemoglobin A1c (02/17/2025 11:50 AM EDT) Hemoglobin A1c 5.2 <6.0 % [facility] Comment:Hemoglobin A1C Refer ence Range Adults: 4.8 - 6.0 % Non diabetic: < 6.0 % Goal: < 7.0 %Additional Action Suggested: > 8.0 %Note: Hemoglobin A1c results are invalid for patients with abnormal amounts of HbF. Blood transfusions may impact the HbA1c concentration in the patient sample. Estimated Average Glucose 103 mg/dL [facility] Comment:eAG = Estimated ave rage glucose which is %A1C expressed asaverage glucose, using the formula of the U0H-XbnssnxAzcsloo Glucose study (ADAG), Diabetes Care, Vol.31,#8,Jun. 2007 Blood Venous blood specimen / Unknown 02/17/2025 11:50 AM EDT 02/17/2025 1:13 PM EDT Maria M Cunningham [employer] LAB BLOOD ORDERABLES Final R esult Performing Organization Address [facility]/ZIP Co de Phone Number [facility] [address] [place] [phone] * Hepatic Function Panel (02/17/2025 11:50 AM EDT) Bilirubin, Total 0.9 0.0 - 1.0 mg/dL [facility] Bilirubin, Direct 0.3 0.0 - 0.5 mg/dL [facility] Aspartate Amino Transferase 33 5 - 37 U/L [facility] Comment:Slight Hemolysis.Int erpret result with caution. Alanine Aminotransferase 21 0 - 40 U/L [facility] Total Protein 7.5 6.5 - 8.0 g/dL [facility] Albumin Level 4.2 3.5 - 5.0 g/dL [facility] Alkaline Phosphatase 96 39 - 117 U/L [facility] Blood Venous blood specimen / Unknown 02/17/2025 11:50 AM EDT 02/17/2025 1:13 PM EDT Maria M Cunningham DO LAB BLOOD ORDERABLES Final R esult Performing Organization Address [facility]/ZIP Co de Phone Number [facility] [address] [place] [phone] * Lipid Panel, Standard (02/17/2025 11:50 AM EDT) Triglycerides 67 <150 mg/dL [facility] Comment:Desirable Triglyceri de: less than 150 mg/dLBorderline High Triglyceride 150-199 mg/dLHigh Triglyceride: 200-499 mg/dLVery High Triglyceride: greater than or equal to 5OO mg/dL Cholesterol 154 <200 mg/dL [facility] Comment:Desirable Cholestero l: less than 200 mg/dLBorderline High Cholesterol: 200-239 mg/dLHigh Cholesterol: greater than 239 mg/dL LDL Cholesterol Calculated 95 <100 mg/dL [facility] Comment:Desirable LDL: less than 100 mg/dLNear Optimal/Above Optimal LDL: 110- 129 mg/dLBorderline High LDL: 130-159 mg/dLHigh LDL: 160-189 mg/dLVery High LDL: greater than or equal to 190 mg/dL HDL Cholesterol 46 >40 mg/dL [facility] Comment:Desirable HDL: great er than 40 mg/dL Note: This HDL assay may give artificially low results in patients with liver disease. Blood Venous blood specimen / Unknown 02/17/2025 11:50 AM EDT 02/17/2025 1:13 PM EDT us Maria M Cunningham DO LAB BLOOD ORDERABLES Final R esult [facility] [address] [place] [phone] * (ABNORMAL) Basic Metabolic Panel (02/17/2025 11:50 AM EDT) Sodium 139 135 - 145 mmol/L [facility] Potassium 4.0 3.3 - 5.1 mmol/L [facility] Comment:Slight Hemolysis.Int erpret result with caution. Chloride 106 96 - 108 mmol/L [facility] Carbon Dioxide 26 22 - 29 mmol/L [facility] Anion Gap 11(L) 12 - 20 [facility] Urea Nitrogen (BUN) 19(H) 9 - 16 mg/dL [facility] Creatinine, Serum 0.76 0.5 - 1.4 mg/dL [facility] Estimated Glomerular Filt Rate >60 [facility] Comment:Chronic Kidney Disea se: Estimated GFR < 60 mL/min/1.12q4Jrsskw Kidney Disease: Estimated GFR < 15 mL/min/1.73m2 Glucose 87 60 - 115 mg/dL [facility] Calcium 9.0 8.4 - 10.2 mg/dL [facility] Blood Venous blood specimen / Unknown 02/17/2025 11:50 AM EDT 02/17/2025 1:13 PM EDT us Maria M Cunningham DO LAB BLOOD ORDERABLES Final R esult [facility] [address] [place] [phone] from Last 3 Months Insurance [employer] Care Teams Uniform Patrol Police Officer Relationship Specialty Start Date End Date Maria M Cunningham DO [address] [place] [phone] PCP - General Family Medicine 02/17/25
--- OUTSIDE RECORDS SUMMARY | 2025-02-23 09:13 | XMS_ITS | Encounter Summary ---
Author Organization [employer] Address [address] [facility] [address] [place] [address] Care Team Providers Care Adult Basic Education Teacher Name Role Phone Maria M Cunningham DO Primary Care Provider [phone] Reason for Visit * Reason Onset Date Comments Results 02/18/2025 Encounter Details Date Type Department Care Team ([facility] st Contact Info) Description 02/18/2025 Telephone [facility] [address] [place], [place] [phone] Maria M Cunningham DO [address] [place], [place] [phone] Results Social History Tobacco Use Types Packs/Day Years Used Date Smoking Tobacco: Never Assessed Sex and Gender Information Value Date Recorded Sex Assigned at Male 01/14/2024 11:35 AM EDT Legal Sex Male 2:20 PM EDT Gender Identity Male 01/14/2024 11:35 AM EDT Sexual Orientation Straight 02/17/2025 10 :49 AM EDT documented as of this encounter Miscellaneous Notes * Telephone Encounter - Rohini Camargo RN - 02/18/2025 10:23 AM EDT RN reviewed BW results with PCP which returned stable/WNL except immunity to rubeola has waned. Patient should receive MMR vaccine in the vaccine clinic. TC placed to patient via [employer] interpreters (Jian #[id number]) in regards to above message. Patient verbalized understanding and is aware to come to the vaccine clinic for vaccination. Patient to f/u PRN. documented in this encounter Plan of Treatment Not on file documented as of this encounter Visit Diagnoses Not on filedocumented in this encounter Care Teams Adult Basic Education Teacher Relationship Specialty Start Date End Date Maria M Cunningham DO [address] [place] [phone] PCP - General Family Medicine 02/17/25 documented as of this encounter
== END 2025-02-23 08:45 | disposition home or self-care (01) ==
LOC: HO.HHCX 08:44
PROVIDERS: Visit Provider Family Medicine
DX: R76.11 Nonspecific reaction to tuberculin skin test without active tuberculosis (principal)
CPT/HCPCS: 71046

== ENCOUNTER → 2025-02-23 08:44 | Outpatient (BNV) | payer SELFPAY | PROVIDERS: Visit Provider Radiology Diagnostic Radiology | DX: R76.11 Nonspecific reaction to tuberculin skin test without active tuberculosis (principal) | CPT/HCPCS: 71046 ==